=== PATIENT | male | born 1960 | race Caucasian/White ===

== ENCOUNTER 2022-11-23 13:36 | Outpatient (CLI) | payer OTHER, SELFPAY ==
--- NOTE | 2022-11-23 | ECG_ITS ---
Measurements Intervals [place] Rate: 69 P: 11 NH: 152 QRS: 1 QRSD: 110 T: 27 QT: 398 QTc: 428 Interpretive Statements SINUS RHYTHM NO PREVIOUS ECG AVAILABLE FOR COMPARISON Electronically Signed On 11-23-2022 15:05:06 TRANSPLANT COORDINATOR by Adolfo Del Rio M.D.
== END 2022-11-23 13:37 | disposition home or self-care (01) ==
LOC: ANHCARD 13:41
PROVIDERS: PCP Family Medicine Sports Medicine
DX: Z01.810 Encounter for preprocedural cardiovascular examination (principal)
CPT/HCPCS: 93005

== ENCOUNTER 2024-02-22 07:45 | Outpatient (CLI) | payer OTHER, SELFPAY ==
--- NOTE | ~2024-02-22 | MR_ITS ---
EXAMINATION: MR lumbar spine wo/w con DATE: 02/22/2024 13:11 INDICATION: Neural tube defect. TECHNIQUE: Magnetic resonance imaging (MRI) of the lumbar spine was performed without and with 20 mL MultiHance intravenous contrast. COMPARISON: None FINDINGS: Bone alignment is normal. There are changes of anterior fusion procedures at L4-L5 and L5-S 1 with interbody devices. Vertebral body heights are normal. Intervertebral disc heights are normal. The distal spinal cord signal intensity is normal. The conus medullaris is at L1. There is clumping o f the cauda equina and peripheral displacement of the cauda equina, consistent with arachnoiditis. Th e following disc levels are specifically discussed: L1-L2: The disc does not extend beyond the endplate margin. There is mild bilateral facet joint osteo arthritis. There is no neural foraminal stenosis. There is no central canal stenosis. L2-L3: There is a left foraminal protrusion. There is mild bilateral facet joint osteoarthritis. Ther e is mild left neural foraminal stenosis. There is no central canal stenosis. L3-L4: The disc is bulging. There is severe bilateral facet joint osteoarthritis. There is mild bilat eral neural foraminal stenosis. There is no central canal stenosis. L4-L5: There is severe bilateral facet joint osteoarthritis. There is mild bilateral neural foraminal stenosis. There is no central canal stenosis. L5-S1: There is moderate bilateral facet joint hypertrophy. There is mild bilateral neural foraminal stenosis. There is no central canal stenosis. IMPRESSION: 1. Mild lumbar spondylosis. 2. Anterior fusion procedures at L4-L5 and L5-S1. 3. Arachnoiditis. Reviewed, dictated and finalized at location E.
== END 2024-02-22 07:46 ==
DX: S31.809A Unspecified open wound of unspecified buttock, initial encounter (principal); X58.XXXA Exposure to other specified factors, initial encounter; M47.896 Other spondylosis, lumbar region; Z98.1 Arthrodesis status; G03.9 Meningitis, unspecified
CPT/HCPCS: 72158; A9577